=== PATIENT | male | born 1980 | race Caucasian/White ===

== ENCOUNTER → 2016-08-25 | Outpatient (REF) | payer MEDICARE ==
[2016-08-25 14:00] LABS: ALBUMIN 3.9 GM/DL (3.2-5.2); ALBUMIN/GLOBULIN RATIO 1.26 (1.00-1.93); ALKALINE PHOSPHATASE 96 U/L (45-117); ALT/SGPT 26 U/L (12-78); ANION GAP 7 MEQ/L (8-16); AST/SGOT 12 U/L (15-37); BILIRUBIN,TOTAL 0.5 MG/DL (0.2-1.0); BLOOD UREA NITROGEN 11 MG/DL (7-18); CALCIUM LEVEL 9.1 MG/DL (8.5-10.1); CARBON DIOXIDE LEVEL 26 MEQ/L (21-32); CHLORIDE LEVEL 108 MEQ/L (98-107); GLOMERULAR FILTRATION RATE 52.9 (>60); GLUCOSE, FASTING 79 MG/DL (70-105); POTASSIUM SERUM 3.8 MEQ/L (3.5-5.1); SODIUM LEVEL 141 MEQ/L (136-145)
[2016-08-25 19:02] LABS: CALCIUM OXALATE CRYSTALS SMALL
[2016-08-26 14:37] LABS: %CD3+CD4+CD8- 33.7 % (Not Estab.); %CD3+CD4-CD8+ 35.5 % (Not Estab.); %CD3+CD4-CD8- 2.9 % (Not Estab.); ABS CD3+CD4+CD8+ 21 /uL (Not Estab.); ABS CD3+CD4+CD8- 708 /uL (Not Estab.); ABS CD3+CD4-CD8+ 746 /uL (Not Estab.); ABS CD3+CD4-CD8- 61 /uL (Not Estab.); CD4/CD8 NYSDOH RATIO 0.95 (Not Estab.); Eosinophils 2 % (.); HCT 49.5 % (37.5-51.0); HGB 17.2 g/dL (12.6-17.7); Monocytes 8 % (.); Neutrophils 69 % (.); WBC 10.3 x10E3/uL (3.4-10.8)
== END ==
LOC: M SFHCPLAZ 11:38
PROVIDERS: ATTEND Internal Medicine Infectious Disease
DX: B20 Human immunodeficiency virus [HIV] disease (principal); Z11.3 Encounter for screening for infections with a predominantly sexual mode of transmission; N18.3 Chronic kidney disease, stage 3 (moderate); H54.8 Legal blindness, as defined in USA; Z72.0 Tobacco use; G40.909 Epilepsy, unspecified, not intractable, without status epilepticus; B35.3 Tinea pedis
CPT/HCPCS: 80053; 81001; 86360; 86780; 87491; 87536; 87591; 90471; 90733; G0463

== ENCOUNTER → 2016-09-26 | Outpatient (REF) | payer MEDICARE ==
[2016-09-26 13:59] LABS: ALBUMIN 3.9 GM/DL (3.2-5.2); ALBUMIN/GLOBULIN RATIO 1.26 (1.00-1.93); BILIRUBIN,DIRECT 0.2 MG/DL (0.0-0.2); BILIRUBIN,TOTAL 0.6 MG/DL (0.2-1.0)
== END ==
LOC: M SFHCPLAZ 12:22
PROVIDERS: ATTEND Internal Medicine Infectious Disease
DX: B35.3 Tinea pedis (principal); Z79.899 Other long term (current) drug therapy

== ENCOUNTER → 2017-03-09 | Outpatient (REF) | payer MEDICARE, MEDICAID ==
[2017-03-09 15:02] LABS: ALBUMIN 3.7 GM/DL (3.2-5.2); ALBUMIN/GLOBULIN RATIO 1.23 (1.00-1.93); BILIRUBIN,TOTAL 0.5 MG/DL (0.2-1.0); CALCIUM LEVEL 8.8 MG/DL (8.5-10.1); CREATININE FOR GFR 1.73 MG/DL (0.70-1.30); GLOMERULAR FILTRATION RATE 48.1 (>60); POTASSIUM SERUM 3.9 MEQ/L (3.5-5.1); TOTAL PROTEIN 6.7 GM/DL (6.4-8.2)
[2017-03-14 00:07] LABS: Eosinophils 3 % (Not Estab.); HGB 16.6 g/dL (12.6-17.7); Monocytes 7 % (Not Estab.); Neutrophils 73 % (Not Estab.); WBC 10.3 x10E3/uL (3.4-10.8)
== END ==
LOC: M SFHCPLAZ 11:40
PROVIDERS: ATTEND Internal Medicine Infectious Disease
DX: B20 Human immunodeficiency virus [HIV] disease (principal); N18.3 Chronic kidney disease, stage 3 (moderate); Z79.899 Other long term (current) drug therapy; Z23 Encounter for immunization
CPT/HCPCS: 80053; 80061; 86360; 86480; 87536; 90472; 90686; G0008; G0463

== ENCOUNTER → 2017-03-27 | Outpatient (REF) | payer MEDICARE, MEDICAID ==
[2017-03-27 14:15] LABS: ALBUMIN 3.6 GM/DL (3.2-5.2); ALBUMIN/GLOBULIN RATIO 1.13 (1.00-1.93); BILIRUBIN,DIRECT 0.1 MG/DL (0.0-0.2); BILIRUBIN,TOTAL 0.4 MG/DL (0.2-1.0); TOTAL PROTEIN 6.8 GM/DL (6.4-8.2)
== END ==
LOC: M LAB REF 12:52
PROVIDERS: ATTEND Internal Medicine Nephrology
DX: B20 Human immunodeficiency virus [HIV] disease (principal); N18.3 Chronic kidney disease, stage 3 (moderate); Z79.899 Other long term (current) drug therapy

== ENCOUNTER → 2017-03-27 | Outpatient (REF) | payer MEDICARE, MEDICAID ==
[2017-03-27 13:24] LABS: MICROSCOPIC EXAM PERFORMED
[2017-03-27 13:25] LABS: BACTERIA, URINE NONE SEEN; CALCIUM OXALATE CRYSTALS,URINE SMALL AMOUNT /hpf; HYALINE CAST, URINE NONE SEEN /lpf (0-1); RBC, URINE NONE SEEN /hpf (0-3); SQUAMOUS EPITHELIAL CELL URINE NONE SEEN /hpf (SMALL AMT); WBC, URINE 0-1 /hpf (0-3)
== END ==
LOC: M LAB REF 12:52
PROVIDERS: ATTEND Internal Medicine Nephrology
DX: N18.3 Chronic kidney disease, stage 3 (moderate) (principal)

== ENCOUNTER → 2017-03-31 | Outpatient (CLI) | payer MEDICAID, MEDICARE ==
--- NOTE | 2017-03-31 14:59 | REP ---
Clinical: Chronic medical renal disease Technique: Real time chavez scale ultrasound examination using curved array transducer. Findings: Bilateral kidneys are relatively normal in contour, size, echogenicity, and reniform shape without hydronephrosis, nephrolithiasis, cystic or renal mass lesions. Increased central renal sinus fat possibly related to chronic medical renal disease. Right kidney measures 11.1 x 6.1 x 6.9 cm. Left kidney measures 12.8 x 5.5 x 6.4 cm. Bladder is unremarkable. Impression: Relatively normal renal ultrasound. No hydronephrosis. Signed by Eliel Kruse MD 03/31/2017 02:49 P
== END ==
LOC: M RAD 13:56
PROVIDERS: ATTEND Internal Medicine Nephrology
DX: N18.3 Chronic kidney disease, stage 3 (moderate) (principal); B20 Human immunodeficiency virus [HIV] disease

== ENCOUNTER → 2017-08-29 | Outpatient (REF) | payer MEDICARE, MEDICAID ==
[2017-08-29 11:44] LABS: APPEARANCE, URINE CLEAR (CLEAR); BACTERIA, URINE AUTO NEGATIVE (NEGATIVE); BILIRUBIN, URINE AUTO NEGATIVE (NEGATIVE); BLOOD, URINE BLOOD NEGATIVE (NEGATIVE); CALCIUM OXALATE CRYSTALS SMALL; COLOR, URINE YELLOW (YELLOW); GLUCOSE, URINE (UA) AUTO NEGATIVE (NEGATIVE); KETONE, URINE AUTO NEGATIVE (NEGATIVE); LEUKOCYTE ESTERASE, URINE AUTO NEGATIVE (NEGATIVE); MUCUS, URINE SMALL (NEGATIVE); NITRITE, URINE AUTO NEGATIVE (NEGATIVE); PROTEIN, URINE AUTO NEGATIVE (NEGATIVE); RBC, URINE AUTO 4 /HPF (0-3); SPECIFIC GRAVITY URINE AUTO 1.021 (1.002-1.035); SQUAMOUS EPITHELIAL CELL UR AU 0 /HPF (0-6); WBC, URINE AUTO 1 /HPF (0-3)
[2017-08-29 13:14] LABS: CHLAMYDIA DNA AMPLIFICATION NEGATIVE (NEGATIVE); GC DNA AMPLIFICATION NEGATIVE (NEGATIVE)
[2017-08-29 14:00] LABS: CHLORIDE LEVEL 110 MEQ/L (98-107); SODIUM LEVEL 142 MEQ/L (136-145)
[2017-08-29 14:25] LABS: ALBUMIN 3.9 GM/DL (3.2-5.2); ALBUMIN/GLOBULIN RATIO 1.18 (1.00-1.93); ALKALINE PHOSPHATASE 95 U/L (45-117); ALT/SGPT 33 U/L (12-78); ANION GAP 11 MEQ/L (8-16); AST/SGOT 15 U/L (7-37); BILIRUBIN,TOTAL 0.4 MG/DL (0.2-1.0); BLOOD UREA NITROGEN 16 MG/DL (7-18); CALCIUM LEVEL 9.2 MG/DL (8.5-10.1); CARBON DIOXIDE LEVEL 21 MEQ/L (21-32); CHOLESTEROL LEVEL 213 MG/DL (<200); CHOLESTEROL RISK RATIO 5.756 (<5); CREATININE FOR GFR 1.86 MG/DL (0.70-1.30); GLOMERULAR FILTRATION RATE 44.2 (>60); GLUCOSE, FASTING 102 MG/DL (70-100); HDL CHOLESTEROL 37 MG/DL (>40); LDL CHOLESTEROL 153.6 MG/DL (<100); NON-HDL-C 176 MG/DL; TOTAL PROTEIN 7.2 GM/DL (6.4-8.2); TRIGLYCERIDES LEVEL 112 MG/DL (<150)
[2017-08-31 14:19] LABS: % CD8 Pos Lymph 31.8 % (12.0-35.5); %CD4 Pos Lymphs 36.4 % (30.8-58.5); ABS Eosinophils 0.2 x10E3/uL (0.0-0.4); ABS Lymphs 1.9 x10E3/uL (0.7-3.1); ABS Monocytes 0.9 x10E3/uL (0.1-0.9); ABS Neutophils 7.9 x10E3/uL (1.4-7.0); Abs CD4 Helper 692 /uL (359-1519); Abs CD8 Suppres 604 /uL (109-897); CD4/CD8 Ratio 1.14 (0.92-3.72); Eosinophils 2 % (Not Estab.); HCT 48.2 % (37.5-51.0); HGB 16.9 g/dL (13.0-17.7); HIV-1 RNA PCR QUANT 2 LC550285 <20 copies/mL (.); Imm ABS Grans 0.1 x10E3/uL (0.0-0.1); Immature Grans 1 % (Not Estab.); Lymphocytes 17 % (Not Estab.); MCH 32.3 pg (26.6-33.0); MCHC 35.1 g/dL (31.5-35.7); MCV 92 fL (79-97); Monocytes 8 % (Not Estab.); Neutrophils 72 % (Not Estab.); Platelets 202 x10E3/uL (150-379); RBC 5.24 x10E6/uL (4.14-5.80); RDW 14.4 % (12.3-15.4)
[2017-09-01 00:06] LABS: QUANTIFERON GOLD TB Negative (Negative); TB Test (QFT) Antigen 0.08 IU/mL (.); TB Test (QFT) Antigen Minus Ni 0.05 IU/mL (.); TB Test (QFT) Mitogen >10.00 IU/mL (.); TB Test (QFT) Nil 0.03 IU/mL (.)
== END ==
LOC: M SFHCPLAZ 08:46
DX: B20 Human immunodeficiency virus [HIV] disease (principal); N18.3 Chronic kidney disease, stage 3 (moderate); Z11.3 Encounter for screening for infections with a predominantly sexual mode of transmission; E83.39 Other disorders of phosphorus metabolism; Z79.899 Other long term (current) drug therapy
CPT/HCPCS: 84100

== ENCOUNTER → 2018-01-08 | Outpatient (CLI) | payer MEDICARE, MEDICAID | LOC: M LRY 17:43 | DX: R05 Cough (principal) | CPT/HCPCS: 71046; G0463 ==

== ENCOUNTER 2018-02-16 16:16 | Emergency (ER) | payer OTHER, MEDICARE, MEDICAID | END 2018-02-16 18:58 | disposition home or self-care (01) | LOC: M ED 16:16 | DX: S92.322A Displaced fracture of second metatarsal bone, left foot, initial encounter for closed fracture (principal); V03.99XA Pedestrian with other conveyance injured in collision with car, pick-up truck or van, unspecified whether traffic or nontraffic accident, initial encounter | CPT/HCPCS: 73590 ==

== ENCOUNTER → 2018-03-01 | Outpatient (REF) | payer MEDICARE, MEDICAID ==
[2018-03-01 13:04] LABS: ANION GAP 7 MEQ/L (8-16); AST/SGOT 11 U/L (7-37); BLOOD UREA NITROGEN 15 MG/DL (7-18); CALCIUM LEVEL 9.3 MG/DL (8.5-10.1); CARBON DIOXIDE LEVEL 27 MEQ/L (21-32); CHLORIDE LEVEL 109 MEQ/L (98-107); CREATININE FOR GFR 1.69 MG/DL (0.70-1.30); GLOMERULAR FILTRATION RATE 49.1 (>60); GLUCOSE, FASTING 95 MG/DL (70-100); PHOSPHORUS LEVEL 2.8 MG/DL (2.5-4.9); POTASSIUM SERUM 4.5 MEQ/L (3.5-5.1); SODIUM LEVEL 143 MEQ/L (136-145)
[2018-03-01 13:05] LABS: ALBUMIN 3.9 GM/DL (3.2-5.2); ALBUMIN/GLOBULIN RATIO 1.39 (1.00-1.93); ALKALINE PHOSPHATASE 109 U/L (45-117); ALT/SGPT 25 U/L (12-78); BILIRUBIN,TOTAL 0.5 MG/DL (0.2-1.0); TOTAL PROTEIN 6.7 GM/DL (6.4-8.2)
== END ==
LOC: M SFHCPLAZ 08:43
DX: B20 Human immunodeficiency virus [HIV] disease (principal); E83.39 Other disorders of phosphorus metabolism
CPT/HCPCS: 84100

== ENCOUNTER → 2018-08-20 | Outpatient (REF) | payer MEDICARE, MEDICAID ==
[~2018-08-20] MED LIST: ATOR1TAB21; LEVETIRACETAM; POTA1TAB23; TRIU1TAB; VIRT1TAB8
[2018-08-20 11:56] LABS: APPEARANCE, URINE CLEAR (CLEAR); BACTERIA, URINE AUTO NEGATIVE (NEGATIVE); BILIRUBIN, URINE AUTO NEGATIVE (NEGATIVE); BLOOD, URINE BLOOD NEGATIVE (NEGATIVE); COLOR, URINE YELLOW (YELLOW); GLUCOSE, URINE (UA) AUTO NEGATIVE (NEGATIVE); KETONE, URINE AUTO NEGATIVE (NEGATIVE); LEUKOCYTE ESTERASE, URINE AUTO NEGATIVE (NEGATIVE); MUCUS, URINE SMALL (NEGATIVE); NITRITE, URINE AUTO NEGATIVE (NEGATIVE); PROTEIN, URINE AUTO NEGATIVE (NEGATIVE); RBC, URINE AUTO 1 /HPF (0-3); SPECIFIC GRAVITY URINE AUTO 1.018 (1.002-1.035); SQUAMOUS EPITHELIAL CELL UR AU 0 /HPF (0-6); UROBILINOGEN, URINE AUTO 0.2 mg/dL (0.0-2.0); WBC, URINE AUTO 0 /HPF (0-3)
[2018-08-20 12:09] LABS: ALBUMIN 3.9 GM/DL (3.2-5.2); ALT/SGPT 45 U/L (12-78); BILIRUBIN,TOTAL 0.4 MG/DL (0.2-1.0); BLOOD UREA NITROGEN 16 MG/DL (7-18); CARBON DIOXIDE LEVEL 26 MEQ/L (21-32); CHLORIDE LEVEL 109 MEQ/L (98-107); CHOLESTEROL LEVEL 218 MG/DL (<200); CHOLESTEROL RISK RATIO 6.606 (<5); CREATININE FOR GFR 1.67 MG/DL (0.70-1.30); GLOMERULAR FILTRATION RATE 49.8 (>60); GLUCOSE, FASTING 86 MG/DL (70-100); HDL CHOLESTEROL 33 MG/DL (>40); LDL CHOLESTEROL 156 MG/DL (<100); NON-HDL-C 185 MG/DL; PHOSPHORUS LEVEL 2.4 MG/DL (2.5-4.9); POTASSIUM SERUM 4.1 MEQ/L (3.5-5.1); SODIUM LEVEL 141 MEQ/L (136-145); TOTAL PROTEIN 6.6 GM/DL (6.4-8.2); TRIGLYCERIDES LEVEL 146 MG/DL (<150)
[2018-08-20 13:27] LABS: CHLAMYDIA DNA AMPLIFICATION NEGATIVE (NEGATIVE); GC DNA AMPLIFICATION NEGATIVE (NEGATIVE)
[2018-08-21 15:30] LABS: % CD8 Pos Lymph 36.8 % (12.0-35.5); %CD4 Pos Lymphs 35.9 % (30.8-58.5); ABS Eosinophils 0.3 x10E3/uL (0.0-0.4); ABS Lymphs 2.8 x10E3/uL (0.7-3.1); ABS Monocytes 0.9 x10E3/uL (0.1-0.9); ABS Neutophils 6.9 x10E3/uL (1.4-7.0); Abs CD4 Helper 1005 /uL (359-1519); Abs CD8 Suppres 1030 /uL (109-897); CD4/CD8 Ratio 0.98 (0.92-3.72); Eosinophils 2 % (Not Estab.); HCT 50.7 % (37.5-51.0); HGB 17.6 g/dL (13.0-17.7); Imm ABS Grans 0.1 x10E3/uL (0.0-0.1); Immature Grans 1 % (Not Estab.); Lymphocytes 26 % (Not Estab.); MCH 32.3 pg (26.6-33.0); MCHC 34.7 g/dL (31.5-35.7); MCV 93 fL (79-97); Monocytes 8 % (Not Estab.); Neutrophils 63 % (Not Estab.); Platelets 217 x10E3/uL (150-379); RBC 5.45 x10E6/uL (4.14-5.80)
== END ==
LOC: M SFHCPLAZ 09:16
PROVIDERS: ATTEND Internal Medicine Infectious Disease
DX: B20 Human immunodeficiency virus [HIV] disease (principal); E78.00 Pure hypercholesterolemia, unspecified
CPT/HCPCS: 36415; 80053; 80061; 81001; 84100; 86360; 86480; 86780; 87491; 87591; G0463

== ENCOUNTER → 2018-08-31 | Outpatient (REF) | payer MEDICARE, MEDICAID ==
[2018-09-05 00:06] LABS: HIV-1 RNA PCR QUANT 2 LC550285 <20 copies/mL (.)
== END ==
LOC: M SFHCPLAZ 13:42
PROVIDERS: ATTEND Internal Medicine Infectious Disease
DX: B20 Human immunodeficiency virus [HIV] disease (principal)

== ENCOUNTER → 2019-02-19 | Outpatient (REF) | payer MEDICARE, MEDICAID ==
[2019-02-19 10:33] LABS: BILIRUBIN,TOTAL 0.4 MG/DL (0.2-1.0); CALCIUM LEVEL 9.3 MG/DL (8.5-10.1); CREATININE FOR GFR 1.66 MG/DL (0.70-1.30); GLOMERULAR FILTRATION RATE 49.9 (>60); PHOSPHORUS LEVEL 3.2 MG/DL (2.5-4.9); POTASSIUM SERUM 4.1 MEQ/L (3.5-5.1); TOTAL PROTEIN 7.1 GM/DL (6.4-8.2)
[2019-02-22 14:29] LABS: % CD8 Pos Lymph 34.4 % (12.0-35.5); %CD4 Pos Lymphs 38.1 % (30.8-58.5); ABS Basophils 0.1 x10E3/uL (0.0-0.2); ABS Eosinophils 0.3 x10E3/uL (0.0-0.4); ABS Lymphs 2.6 x10E3/uL (0.7-3.1); ABS Monocytes 0.7 x10E3/uL (0.1-0.9); ABS Neutophils 6.1 x10E3/uL (1.4-7.0); Abs CD4 Helper 991 /uL (359-1519); Abs CD8 Suppres 894 /uL (109-897); CD4/CD8 Ratio 1.11 (0.92-3.72); Eosinophils 3 % (Not Estab.); HCT 50.8 % (37.5-51.0); HGB 17.6 g/dL (13.0-17.7); HIV-1 RNA PCR QUANT 2 LC550285 60 copies/mL (.); HIV-1 RNA PCR QUANT 3 LC550285 1.778 (.); Imm ABS Grans 0.1 x10E3/uL (0.0-0.1); Immature Grans 1 % (Not Estab.); Lymphocytes 26 % (Not Estab.); MCHC 34.6 g/dL (31.5-35.7); MCV 92 fL (79-97); Monocytes 7 % (Not Estab.); Neutrophils 62 % (Not Estab.); Platelets 227 x10E3/uL (150-450); RDW 15.2 % (12.3-15.4); WBC 9.8 x10E3/uL (3.4-10.8)
== END ==
LOC: M SFHCPLAZ 08:43
PROVIDERS: ATTEND Internal Medicine Infectious Disease
DX: B20 Human immunodeficiency virus [HIV] disease (principal); E83.39 Other disorders of phosphorus metabolism; E78.00 Pure hypercholesterolemia, unspecified; Z23 Encounter for immunization
CPT/HCPCS: 36415; 80053; 80061; 84100; 86360; 87536; 90682; G0008; G0463

== ENCOUNTER 2019-03-25 22:48 | Emergency (ER) | payer MEDICAID, MEDICARE ==
[2019-03-25] MEDS ORDERED: EPINEPHrine 1MG/10ML SYRINGE 1.5IN ONE (22:49)
[2019-03-25] MEDS ORDERED: MAGNESIUM SULFATE 1GM/2ML (8MEQ/2ML) VIAL (J3475) ONE (22:49)
[2019-03-25 23:01] VITALS: BP 136/87
== END 2019-03-26 01:40 | disposition expired ==
LOC: M ED 22:48
DX: I46.9 Cardiac arrest, cause unspecified (principal); Z79.899 Other long term (current) drug therapy
CPT/HCPCS: 92950; 99291; J3475